=== PATIENT | male | born 1955 ===

== ENCOUNTER 2017-12-06 00:14 | Inpatient (IN) | payer BC, OTHER ==
[2017-12-06] VITALS (14 sets, daily range): BP systolic 89–137; BP diastolic 42–89
[~2017-12-06] VITALS: Ht 175.3 cm; Wt 90.3 kg
[~2017-12-06 00:14] MED LIST: ATOR10TA24 PO; DICL-195 PO; ESOM40CA42 PO; FAMOTIDINE 20 MG TAB PO ONE; FENO48TA PO; LIDOCAINE/SOD BICARB 8.4% SYR ID ONE; MIDAZOLAM 2 MG/2 ML VIAL IVP ONE; NORMOSOL R SOLN(*) 1000 ML BAG 1,000 ML IV PRN; ceFAZolin(*) 2GM/D5W 50ML 50 ML IVPB ONE
[2017-12-06] MEDS ORDERED: FAMOTIDINE 20 MG TAB PO ONE (05:50)
[2017-12-06] MEDS ORDERED: LIDOCAINE 2% IV 100 MG/5ML SYR ONE (07:22)
[2017-12-06] MEDS ORDERED: fentaNYL CITR 250 MCG/5 ML AMP ONE (07:22)
[2017-12-06] MEDS ORDERED: PROPOFOL EMUL(*) 10MG/ML 20 ML 20 ML ONE (07:25)
[2017-12-06] MEDS ORDERED: MIDAZOLAM 2 MG/2 ML VIAL IVP PRN (08:05)
[2017-12-06] MEDS ORDERED: NORMOSOL R SOLN(*) 1000 ML BAG 1,000 ML IV PRN (08:05)
[2017-12-06] MEDS ORDERED: FAMOTIDINE 20 MG/50 ML PREMIX IVPB ONE (08:05)
[2017-12-06] MEDS ORDERED: LIDOCAINE/SOD BICARB 8.4% SYR ID ONE (08:05)
[2017-12-06] MEDS ORDERED: ceFAZolin(*) 2GM/D5W 50ML 50 ML IVPB ONE (08:05)
[2017-12-06] MEDS ORDERED: ROCURONIUM BROM 10 MG/ML 10 ML ONE (09:00)
[2017-12-06] MEDS ORDERED: KETAMINE HCL 200 MG/20 ML MDV ONE (09:03)
[2017-12-06] MEDS ORDERED: DEXAMETHASONE SOD PHOS 10MG/ML ONE (09:06)
[2017-12-06] MEDS ORDERED: ONDANSETRON 4 MG/2 ML VIAL ONE (09:10)
[2017-12-06] MEDS ORDERED: hydrALAZINE HCL 20 MG/ML VIAL ONE (09:25)
[2017-12-06] MEDS ORDERED: SUGAMMADEX SOD 200 MG/2 ML SDV ONE (09:34)
[2017-12-06] MEDS ORDERED: fentaNYL CITR 100 MCG/2 ML AMP ONE ×4 (10:10→11:43)
[2017-12-06] MEDS ORDERED: HYDROmorphone HCL 2 MG/ML SDV ONE (11:48)
[2017-12-06] MEDS ORDERED: ceFAZolin(*) 2GM/D5W 50ML 50 ML IVPB SCH (12:04)
[2017-12-06] MEDS ORDERED: LR(*) 1000 ML BAG 1,000 ML IV PRN (12:05)
[2017-12-06] MEDS ORDERED: PROMETHAZINE 25 MG/ML 1 ML AMP ONE (12:10)
[2017-12-06] MEDS ORDERED: diphenhydrAMINE 25 MG CAP PO PRN (12:50)
[2017-12-06] MEDS ORDERED: MAGNESIUM HYDROXIDE* 30ML UDCP PO PRN (12:50)
[2017-12-06] MEDS ORDERED: FLUSH 10 ML SYR IVP PRN (12:50)
[2017-12-06] MEDS ORDERED: ONDANSETRON 4 MG/2 ML VIAL IVP PRN (12:50)
[2017-12-06] MEDS ORDERED: ACETAMINOPHEN(*)1000 MG/100 ML 100 ML IVPB PRN (12:50)
[2017-12-06] MEDS ORDERED: BISACODYL 10 MG SUPP PR PRN (12:50)
[2017-12-06] MEDS ORDERED: BENZOCAINE/MENTHOL 1 EACH LOZG PO PRN (12:50)
[2017-12-06] MEDS ORDERED: HYDROmorphone HCL 2 MG/ML SDV IVP PRN (12:50)
[2017-12-06] MEDS ORDERED: ACETAMINOPHEN 500 MG TAB PO PRN (12:50)
--- NOTE | 2017-12-06 12:53 | RADIOLOGY IMAGING REPORT ---
FACILITY: [facility] [place] PATIENT NAME: Hola Montes De Oca : 1955 MR: [id number] V: [id number] EXAM DATE: ORDERING PHYSICIAN: ARON PEDRAZA TECHNOLOGIST: Location: [facility] Patient: Hola Montes De Oca : 1955 Visit/Account:[id number] Date of Sevice: 12/06/2017 LUMBAR SPINE 1 VIEW Indication: L3-S1 LAMINECTOMIES L5-S1 DISCECTOMY Comparison: None. Findings: Posterior instrumentation is seen at the level of the L4 vertebral body. IMPRESSION: Intraoperative image from lumbar spine surgery. Report Dictated By: Marbin Mendez at 12/06/2017 12:47 PM Report E-Signed By: Marbin Mendez at 12/06/2017 12:48 PM WSN:[id number]
--- NOTE | 2017-12-06 13:51 | OPERATIVE REPORT 1 ---
EVENT DATE: December 06, 2017 SURGEON: Loy Price MD ANESTHESIOLOGIST: Omar Ayoub MD ANESTHESIA: General endotracheal. UTILIZATION REVIEW COORDINATOR: Leonel Panchal PA-C PREOPERATIVE DIAGNOSIS Lumbar spinal stenosis with neurogenic claudication. POSTOPERATIVE DIAGNOSIS Lumbar spinal stenosis with neurogenic claudication. PROCEDURE PERFORMED L3 to S1 laminectomy with left L5-S1 discectomy. IV FLUIDS 1900 mL. ESTIMATED BLOOD LOSS 125 mL. IMPLANTS None. SPECIMENS None. DRAINS None. COMPLICATIONS None. DISPOSITION Post anesthesia care unit. INDICATION FOR SURGERY Mr. Montes De Oca is a 62-year-old male who presented with chief complaint of bilateral lower extremity radiating pain, numbness and tingling as well as decreased walking tolerance secondary to tired and heavy legs. Symptoms were worse on the left than the right. He had failed physical therapy, medications and activity modifications. His physical examination was significant for positive straight leg raise on the left, but was otherwise normal. His imaging studies showed moderate to severe spinal stenosis at L3-L4, L4-L5 and a left sided inferiorly extruded disk herniation at L5-S1. Secondary to ongoing symptoms and failure to improve with nonoperative care, Mr. Montes De Oca was offered and elected to undergo L3 to S1 laminectomy with left-sided L5-S1 discectomy. Prior to surgery, I explained in detail to the patient the possible risks of surgery. This included the risk of nerve root injury, bleeding, infection, persistent and/or worsening pain, spinal fluid leak, meningitis, , blindness, sexual dysfunction, autonomic nervous system dysfunction and other unforeseen medical and surgical complications. An understanding that spinal surgery is more predictive at improving extremity discomfort than axial spine pain was stressed. Mr. Montes De Oca voiced an understanding and wished to proceed. DESCRIPTION OF PROCEDURE On the date of surgery, the patient was met in the preoperative hold area, and all questions were answered. The operative site was identified and marked by myself. The patient was taken in good condition to the operating room, and after succumbing to anesthesia, was placed in the prone position on a Kamron table. All bony protuberances and soft tissues were well padded in the standard fashion. Care was taken to maintain appropriate perfusion pressures during anesthesia. Preoperatively, antibiotics were administered according to the appropriate timing schedule. At the conclusion of the procedure, the sponge and needle count were correct times two. Final time out was undertaken by members of the operating team to confirm correct patient, correct levels and correct surgery. The patient was then prepped and draped in standard sterile orthopedic fashion. An incision was made over the intended surgical levels. Dissection was carried down to the posterior elements, and the soft tissues were elevated off the posterior elements in a subperiosteal manner. A lateral radiograph was obtained to confirm correct levels. A Leksell rongeur was used to remove the spinous processes of L3, L4 and L5. The lamina was thinned in the midline with a combination of Leksell rongeurs and a high-speed sultana. The canal was entered utilizing an angled curette to undermine the superior insertion of the ligamentum flavum on the inferior aspect of the L5 lamina. A Linh elevator was used to separate any dural adhesions from surrounding bone and soft tissue prior to use of the Kerrison punch. Midline decompression was then performed utilizing a combination of 3-0 and 4-0 Kerrison rongeurs. Once the midline was decompressed, bilateral lateral recess decompressions were performed again using 3-0 and 4-0 Kerrison rongeurs. Once this was completed and we were satisfied with our lateral recess and foraminal decompression, we turned our attention to the L5-S1 level on the left. The S1 nerve root was retracted medially, exposing a cystic structure and some inferiorly extruded disk material. This was removed piecemeal. The Middlesex elevator was used to sweep anterior to the dura and nerve root, sweeping and searching for any loose disk fragments. These were all removed. The wound was then irrigated with copious sterile saline solution , and meticulous hemostasis was obtained. The wound was then closed in layers using interrupted sutures for the deep fascia, inverted interrupted sutures for the subcutaneous tissue and then a running subcuticular skin stitch. A sterile dressing was applied. Sponge and needle counts were correct times two. POSTOPERATIVE CARE PLAN Mr. Montes De Oca will remain in the hospital overnight. He will likely be discharged home postoperative day one once he has been ambulating freely, has good pain control and is tolerating p.o. intake. He will follow up with me in two weeks time for wound check and examination. LIBAN
[2017-12-06] MEDS ORDERED: ONDANSETRON 4 MG/2 ML VIAL IVP ONE (15:25)
--- NOTE | 2017-12-06 15:38 | Hospitalist Consultation ---
History of Present Illness Requesting Physician Dr. Price Reason for Consult Medication Management Chief Complaint s/p laminectomy History of Present Illness He was admitted s/p laminectomy. He has medical history of hyperlipidemia and GERD. He does have a history of Bilateral PE in 2012 after having a knee surgery. History Problems: (1) History of pulmonary embolism Status: Resolved (2) GERD (gastroesophageal reflux disease) Status: Chronic (3) Hyperlipemia Status: Chronic Home Meds Reported Medications Diclofenac Sodium (DICLOFENAC SODIUM) 75 Mg Tablet.dr, 75 MG PO QDAY, TAB 10/04/17 Esomeprazole Magnesium (NEXIUM) 40 Mg Capsule.dr, 1 CAP PO QDAY, CAP 10/04/17 Atorvastatin Calcium (LIPITOR) 10 Mg Tablet, 1 TAB PO QDAY, TAB 10/04/17 Fenofibrate Nanocrystallized (FENOFIBRATE) 48 Mg Tablet, 48 MG PO QDAY 10/04/17 Allergies: Coded Allergies: daptomycin (Verified Allergy, Intermediate, PNEUMONITIS SECONDARY TO ANTIBIOTICS , 12/06/17) Hx Smoking: No Smoking Status: Never Smoker Caffeine Intake: Soda Caffeine/Cups Per Day: 2-3 per day Hx Alcohol Use: Yes Hx Substance Use Disorder: No Social Drug Use: Never History of IV Drug Use: No Review of Systems All Systems Reviewed/Normal: Yes, Except as Noted Gastrointestinal: Nausea, Vomiting Exam Vital Signs Vital Signs Date Time Temp Pulse Resp B/P (MAP) Pulse Ox O2 Delivery O2 Flow Rate FiO2 12/06/17 14:15 75 14 122/86 (98) 93 Nasal Cannula 2.0 12/06/17 13:30 98.3 General Appearance: Alert, Awake, No Acute Distress, Afebrile Neuro: No Gross deficits Cardiovascular: Regular Rate and Rhythm Respiratory: No Respiratory Distress, Clear to Auscultation GI: Abd Soft and Non-Tender Psych: Alert & Oriented X3, Appropriate Mood & Affect Assessment and Plan Problems: (1) S/P laminectomy Status: Acute Assessment & Plan: Followed by Dr. Price (2) Hyperlipemia Status: Chronic Assessment & Plan: He is on chronic treatment with Fenofibrate and atorvastatin. (3) GERD (gastroesophageal reflux disease) Status: Chronic Assessment & Plan: He is on chronic treatment with Nexium. He will be placed on Protonix during admission. (4) History of pulmonary embolism Status: Resolved Venous Thromboembolism Antithrombotics Is Pt On Any Antithrombotics?: No Prophylaxis Tx Contraindicated Pharmacological Contraindicati: Surgical Contraindication EZEQUIEL GREENBERG FIXTURE REPAIRER FABRICATOR Dec 06, 2017 15:38
[2017-12-06] MEDS ORDERED: SCOPOLAMINE 1.5 MG PATCH TD ONE (15:55)
[2017-12-06] MEDS: ceFAZolin(*) 2GM/D5W 50ML 50 ML IVPB SCH (16:44)
[2017-12-06] MEDS: APAP/HYDROCODONE 325/5 TAB PO PRN (18:27)
[2017-12-06] MEDS: DIAZEPAM 5 MG TAB PO PRN (20:49)
[2017-12-06] MEDS: oxyCODONE HCL 5 MG CAP PO PRN (20:49)
[2017-12-06] MEDS: DOCUSATE SODIUM 100 MG CAP PO SCH (20:49)
[2017-12-06] MEDS ORDERED: ATORVASTATIN 10 MG TAB PO SCH (21:00)
[2017-12-06] MEDS ORDERED: FENOFIBRATE 48 MG TAB PO SCH (21:00)
[2017-12-07] MEDS: ceFAZolin(*) 2GM/D5W 50ML 50 ML IVPB SCH ×2 (00:15→08:27)
[2017-12-07] MEDS: APAP/HYDROCODONE 325/5 TAB PO PRN (00:15)
[2017-12-07] MEDS: oxyCODONE HCL 5 MG CAP PO PRN ×2 (06:09→09:09)
[2017-12-07] MEDS: DIAZEPAM 5 MG TAB PO PRN (06:09)
[2017-12-07 06:10] VITALS: BP 131/71
[2017-12-07] MEDS ORDERED: OXYC-865 PO (07:55)
[2017-12-07] MEDS ORDERED: DOCU240C84 PO (07:57)
[2017-12-07] MEDS ORDERED: DIA5 PO (07:57)
[2017-12-07] MEDS: DOCUSATE SODIUM 100 MG CAP PO SCH (08:22)
--- NOTE | 2017-12-07 08:34 | Hospitalist Progress Note ---
Subjective Progress Notes Subjective He has no complaints this morning. He states he is ready to go home. Patient Complains of: Cardiovascular: No: Chest Pain Respiratory: No: Shortness of Breath Physical Exam Vital Signs Date Time Temp Pulse Resp B/P (MAP) Pulse Ox O2 Delivery O2 Flow Rate FiO2 12/07/17 06:10 98.3 75 20 131/71 (91) 92 Nasal Cannula 1.0 General Appearance: Alert, Awake, No Acute Distress, Afebrile Cardiovascular: Regular Rate and Rhythm Respiratory: No Respiratory Distress, Clear to Auscultation GI: Soft and Non-Tender Extremities: No Edema Psych: Alert & Oriented X3, Appropriate Mood & Affect Assessment and Plan Problems: (1) S/P laminectomy Status: Acute Assessment & Plan: Followed by Dr. Price (2) Hyperlipemia Status: Chronic Assessment & Plan: He is on chronic treatment with Fenofibrate and atorvastatin. (3) GERD (gastroesophageal reflux disease) Status: Chronic Assessment & Plan: He is on chronic treatment with Nexium. (4) History of pulmonary embolism Status: Resolved Assessment & Plan: He was encouraged to walk often, as well as wear jovita hose to reduce risk of blood clot. Exam Sepsis Risk: No Definite Risk EZEQUIEL GREENBERG LANDSCAPE ARCHITECTURE TEACHER Dec 07, 2017 08:34
[2017-12-07] MEDS ORDERED: PANTOPRAZOLE SOD 40 MG TABEC PO SCH (09:00)
[2017-12-07 09:08] VITALS: Ht 175.3 cm; Wt 90.3 kg
== END 2017-12-07 10:00 | disposition home or self-care (01) | DRG 520 ==
LOC: OR 00:14 → MED 13:30
PROVIDERS: ADMIT Orthopaedic Surgery; ATTEND Orthopaedic Surgery
PROC: 0SB40ZZ Excision of Lumbosacral Disc, Open Approach (ICD-10-PCS; 2017-12-06)
PROC: 01NB0ZZ Release Lumbar Nerve, Open Approach (ICD-10-PCS; principal; 2017-12-06 08:53)
DX: M48.062 Spinal stenosis, lumbar region with neurogenic claudication (principal); M54.16 Radiculopathy, lumbar region; K21.9 Gastro-esophageal reflux disease without esophagitis; Z86.711 Personal history of pulmonary embolism; Z88.1 Allergy status to other antibiotic agents; E78.5 Hyperlipidemia, unspecified
CPT/HCPCS: 36415; 72020; 86850; 86900; 86901; 97161; J0360; J0690; J1100; J1170; J2001; J2405; J2550; J2704; J3010; J3490; J7120